=== PATIENT | female | born 1960 | race Caucasian/White ===

== ENCOUNTER → 2016-09-03 | Outpatient (CLI) | payer BC ==
[~2016-09-03] MED LIST: AMAR4TAB PO; ESTR0.5T3 PO; HYDR25TA5 PO; PRAV20TA2 PO
--- NOTE | 2016-09-03 18:23 | EKG ---
Date Performed: 09/03/2016 Time Performed: 10:31:51 PTAGE: 56 years EKG: SINUS TACHYCARDIA BORDERLINE LEFT AXIS DEVIATION LOW QRS VOLTAGE IN PRECORDIAL LEADS PATTER N CONSISTENT WITH PULMONARY DISEASE ABNORMAL ECG NO PREVIOUS TRACING DOCTOR: Arnel Calderon Interpretating Date/Time 09/03/2016 18:22:52
== END ==
LOC: CPRE 10:09
PROVIDERS: ATTEND Plastic Surgery
DX: Z01.810 Encounter for preprocedural cardiovascular examination (principal); C44.321 Squamous cell carcinoma of skin of nose; R00.0 Tachycardia, unspecified
CPT/HCPCS: 93005

== ENCOUNTER → 2016-09-05 | Day surgery (SDC) | payer BC ==
--- NOTE | 2016-09-04 21:51 | MH ---
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 She was referred to me for further care. The location is mid portion of the ala on the left side, size is approximately 1 cm in diameter base. The patient was seen in my office for evaluation and preop examination. She was explained the process of excision frozen section and depending on the defect, size and shape the reconstruction options. The possibility of full-thickness skin graft versus rotation flaps including dorsal nasal flap or a nasolabial flap was pointed out. She is willing to go ahead with the full-thickness skin graft option. She understands that the graft may possibly not be taken and a future reconstructive option may need to be considered. The removal of the cancer bearing skin is the first priority. The patient does have a small amount of visible lesion on the border of the nose both superiorly and inferiorly. PAST MEDICAL HISTORY Significant for diabetes type 1, high cholesterol. She does not have high blood pressure. No cardiac problems. No coronary artery issues. PAST SURGERIES None. MEDICATIONS Current medications 1. Hormone replacement 2. HydroDIURIL. 3. Amaryl. SOCIAL HISTORY Negative for smoking, alcohol or drugs. No risk factor for HIV or hepatitis. She is 4 feet 11 inches tall, weighs 130 pounds. No chronic skin conditions, collagen disorders or lymph node issues, etc. PHYSICAL EXAMINATION GENERAL: A 58-year-old white female with stable vital signs. The patient is alert, cooperative, fully oriented. She is emotionally stable. HEENT: Head and neck shows clear sclerae. Pupils are equal, reactive to room light. Trachea is in midline. No gross thyromegaly. Neck is relatively short matching her overall height. Otherwise normal neck movements. CHEST: Good expansion with normal breathing. CARDIAC: Normal heart Head sounds, normal breath sounds, upper and lower extremities are also grossly intact. SKIN: The local examination of the facial skin lesions shows a biopsy site that is healing fairly well. There is no active infection, no open areas. There is a slight thickening of tissue noted at the 12 o'clock superior border and also between six and 7 o'clock position with the patient upright. The rest of the face has overall reddish sun damaged skin with some aging changes. No obvious suspicious lesions noted otherwise. IMPRESSION Biopsy-proven squamous cell carcinoma left side of the nose. PLAN Excise the area with frozen section control and reconstruct with a full-thickness skin graft from the left neck. The patient's laboratory tests will be reviewed when available on the chart. signed, not fully reviewed MD ANA Mensah/ /8:01 PM /9:35 PM MTDAndres
[~2016-09-05] VITALS: Ht 149.9 cm; Wt 62.7 kg
[~2016-09-05] MED LIST changes: +*ONDANSETRON 4 MG VIAL PERIprocedural Use ONLY ONE; +*PROMETHAZINE 25 MG/ML VIAL PERIprocedural use ONLY ONE; +ARTIFICIAL TEARS OPTH OINT 3.5 APPLIC/3.5 GM TUBO ONE; +BACITRACIN OPHT OINT 3.5 GM TUBO ONE; +BACITRACIN TOP OINT 15 GM TUBE ONE; +BUPIVACAINE HCL PF 0.25% 30 ML VIAL ONE; +BUPIVACAINE HCL PF 0.5% 30 ML VIAL ONE; +DEXAMETHASONE SOD PHOS 4 MG/ML VIAL ONE; +DO NOT ADM ANY ANTICOAGULANT DRUGS XX PRN; +EPINEPHrine HCL (1:1000) 1 MG/ML VIAL ONE; +FAMOTIDINE 20 MG/2 ML VIAL ONE; +HYDROmorphone HCL PF 1 MG/ML VIAL IV PRN; +INSULIN HUMAN REGULAR 1,000 UNITS/10 ML VIAL SQ PRN; +LACTATED RINGER'S 1000 ML IV SCH; +LIDOCAINE 1%/EPINEPHrine 1:100,000 SOLN 50 ML VIAL ONE; +METOCLOPRAMIDE HCL 10 MG/2 ML VIAL ONE; +METOPROLOL TARTRATE 25 MG TAB PO PRN; +MIDAZOLAM HCL 2 MG/2 ML VIAL ONE; +MINERAL OIL 10 ML VIAL ONE; +NEOMYCIN/POLYMYXIN/BACITRACIN OINT 15 GM TUBE ONE; +NEOSTIGMINE 3 MG/3 ML SYR IV ONE; +ONDANSETRON HCL 4 MG/2 ML VIAL IV PUSH ONE; +PROPOFOL 200 MG/20 ML AMP IV ONE; +SODIUM BICARBONATE 8.4% INJ 50 MEQ/50 ML SYR ONE; +SODIUM CHLORID 0.9% 500 ML IV SCH; +SODIUM CHLORIDE FLUSH PRN IVF; +ceFAZolin 1,000 MG/NS 100 ML IV SCH; +ceFAZolin INJ 1,000 MG VIAL ONE; +oxyCODONE/ACETAMINOPHEN 5 MG/325 MG TAB PO PRN
[2016-09-05 06:35] VITALS: BP 189/94; PULSE 108; RESP 16; TEMP 98.2; O2SAT 99
[2016-09-05 10:37] VITALS: BP 137/70; PULSE 76; RESP 16; TEMP 97.4; O2SAT 96
--- NOTE | 2016-09-10 08:58 | MP ---
cc: CAROLINE CHEN M.D. DATE OF SURGERY 09/05/2016 PREOPERATIVE DIAGNOSIS Invasive squamous cell carcinoma left side nose. POSTOPERATIVE DIAGNOSIS Invasive squamous cell carcinoma left side nose. OPERATION Excision left side nose squamous cell carcinoma 3.5 cm in diameter. Excision, frozen section and full-thickness skin graft from the left side neck. SURGEON MD King ANESTHESIA General. INDICATIONS A 56-year-old white female with biopsy-proven invasive squamous cell carcinoma involving the left nose who underwent a detailed explanation of the surgical excision down to the cartilage with approximately 3-4 mm minimal margin where possible and the reconstructive options were discussed. She has elected to go with the full-thickness skin graft option at this point. She understands the risk of graft failure and possible future open wound care and a secondary reconstruction and also is willing to go ahead with the general anesthesia and possible risks and complications of the anesthesia and surgery in general. PROCEDURE The patient was brought to the operating room, was given supine position. Anesthesia was started. IV antibiotic had been given. The prep and drape was done. Time-out was called and completed. Preoperative markings were reinforced. The approximately 4-mm border was taken surrounding the visible lesion. The area was tumesced with lidocaine 1% with epi and was excised down to the underlying cartilage. It was sent for frozen section. An over-sized graft was harvested from the left neck and it was tacked into the defect. The frozen section report received indicated a presence of the invasive squamous cell carcinoma. The 3 o'clock margin was microscopically positive. This was into the nasolabial crease and an additional 4-mm margin was taken from 12 o'clock to 6 o'clock position and sent for frozen section again. This created an extension of the lesion from the nose to the cheek and additional contour change with the crease line. The existing graft was slit in two in order to allow for creating a matching line to the nasolabial fold and the rest of the graft was tacked in place. The donor site was closed with 4-0 Vicryl sutures. The second frozen section report received was clear. The final came in and taking of the graft was completed. A Xeroform and a bolster dressing was applied after cleaning the area and a [id number] suture on a Xeroform pledget was used to secure the bolster against the graft. The donor site was cleaned and dressed with Steri-Strips. The patient remained stable. Intraoperative blood loss less than 10 cc. No complications. signed, not fully reviewed MD ANA Mensah/CADY /10:28 AM /7:51 AM MTDAndres
== END | disposition home or self-care (01) ==
LOC: HSDC 06:05
PROVIDERS: ATTEND Plastic Surgery
DX: C44.321 Squamous cell carcinoma of skin of nose (principal); E10.9 Type 1 diabetes mellitus without complications; E78.00 Pure hypercholesterolemia, unspecified; Z79.4 Long term (current) use of insulin
CPT/HCPCS: 00300; 11644; 15260; 88305; 88331; J0690; J1100; J2250; J2405; J2550; J2710; J2765; J3010; J7120; J0171